=== PATIENT | female | born 1990 | race Caucasian/White ===

== ENCOUNTER 2018-11-04 16:44 | Emergency (ER) | payer OTHER ==
--- NOTE | 2018-11-04 17:01 | ERPHSYRPT ---
- History of Present Illness Time Seen by Provider: 11/04/18 16:58 Source: patient Exam Limitations: no limitations Physician History: 28-year-old white female with history of bee sting allergy arrives with complaint of itching all over she states she was stung by a bee approximately 20 minutes ago she denies any shortness of breath no nausea no vomiting. Past medical history includes bee sting allergy, bipolar disorder, pituitary cyst Past surgical history includes ORIF right leg and facial surgeries Last menstrual period one week ago denies Timing/Duration: today (220 minutes ago) Severity: moderate Modifying Factors: Improves With: other (stung by a bee) Associated Symptoms: rash (rash on anterior chest itching all over), No nausea, No vomiting, No abdominal pain, No shortness of breath, No heartburn, No diaphoresis, No cough, No chills, No chest pain, No fever, No headaches, No loss of appetite, No malaise, No syncope, No seizure, No weakness Allergies/Adverse Reactions: bee venom protein (honey bee) Allergy (Severe, Verified 11/04/18 17:02) Home Medications: Diclofenac Potassium [Cambia] 1 ea PO DAILY 11/04/18 [History] Propranolol HCl [Propranolol HCl ER] 80 mg PO HS 11/04/18 [History] lamoTRIgine [Lamictal] 150 mg PO HS 11/04/18 [History] - Review of Systems Constitutional: No Fever, No Chills Eyes: No Symptoms Ears, Nose, & Throat: No Symptoms Respiratory: No Cough, No Dyspnea Cardiac: No Chest Pain, No Edema, No Syncope Abdominal/Gastrointestinal: No Abdominal Pain, No Nausea, No Vomiting, No Diarrhea Genitourinary Symptoms: No Dysuria Musculoskeletal: No Back Pain, No Neck Pain Skin: Rash (rrash on her anterior chest), Other (itching all over) Neurological: No Symptoms Psychological: No Symptoms Endocrine: No Symptoms All Other Systems: Reviewed and Negative - Nursing Vital Signs Nursing Vital Signs: Initial Vital Signs Temperature 98 F 11/04/18 16:50 Pulse Rate 77 11/04/18 16:50 Respiratory Rate 16 11/04/18 16:50 Blood Pressure 139/85 11/04/18 16:50 O2 Sat by Pulse Oximetry 98 11/04/18 16:50 Pain Scale Pain Intensity 0 - Physical Exam General Appearance: mild distress, alert Eye Exam: PERRL/EOMI, eyes nml inspection Ears, Nose, Throat Exam: normal ENT inspection, TMs normal, pharynx normal, moist mucous membranes Neck Exam: normal inspection, non-tender, supple, full range of motion Respiratory Exam: normal breath sounds, lungs clear, No respiratory distress Cardiovascular Exam: regular rate/rhythm, normal heart sounds, normal peripheral pulses, capillary refill <2 sec Gastrointestinal/Abdomen Exam: soft, normal bowel sounds, No tenderness, No mass Back Exam: normal inspection, normal range of motion, No CVA tenderness, No vertebral tenderness Extremity Exam: normal inspection, normal range of motion, pelvis stable Neurologic Exam: alert, oriented x 3, cooperative, normal mood/affect, nml cerebellar function, nml station & gait, sensation nml, No motor deficits Skin Exam: other (erythematous rash anterior chest, arms and legs erythematous from scratching) Lymphatic Exam: No adenopathy SpO2 Interpretation: normal Ordered Tests: Active Orders 24 hr Category Date Time Status Critical Care Physician Assistant STAT Care 11/04/18 16:58 Active IV Insertion STAT Care 11/04/18 16:57 Active Medication Summary Discontinued Medications Generic Name Dose Route Start Last Admin Trade Name Freq PRN Reason Stop Dose Admin Diphenhydramine HCl 25 mg 11/04/18 16:57 11/04/18 17:20 Benadryl 50 Mg/Ml IV 11/04/18 16:58 25 mg STAT ONE Administration Diphenhydramine HCl Confirm 11/04/18 17:15 Benadryl 50 Mg/Ml Administered 11/04/18 17:16 Dose 50 mg .ROUTE .STK-MED ONE Epinephrine HCl 0.3 mg 11/04/18 16:57 11/04/18 17:20 Epinephrine 1mg/Ml Amp IM 11/04/18 16:58 0.3 mg STAT ONE Administration Epinephrine HCl Confirm 11/04/18 17:16 Epinephrine 1mg/Ml Amp Administered 11/04/18 17:17 Dose 1 mg .ROUTE .STK-MED ONE Methylprednisolone Sodium Succinate 125 mg 11/04/18 16:57 11/04/18 17:20 Solu-Medrol 125 Mg IV 11/04/18 16:58 125 mg STAT ONE Administration Methylprednisolone Sodium Succinate Confirm 06/25/19 17:16 Solu-Medrol 125 Mg Administered 11/04/18 17:17 Dose 125 mg .ROUTE .STK-MED ONE - Progress Progress: improved Progress Note: 11/04/18 17:58 Patient feeling much better. No longer itching. Rash is resolved. Will discharge - Departure Departure Disposition: Home Clinical Impression: Allergic reaction Qualifiers: Encounter type: initial encounter Qualified Code(s): T78.40XA - Allergy, unspecified, initial encounter Condition: Fair Critical Care Time: No Referrals: RADHA ELDRIDGE [Primary Care Provider] - Additional Instructions: Return home. Benadryl 50 mg orally every 6 hours x2-3 days. Plenty of fluids. Tapering prednisone as directed. Use EpiPen as directed. Followup with your family . Return for acute distress or for severe symptoms.
[2018-11-04] MEDS ORDERED: BENADRYL 50 MG/ML ONE (17:15)
[2018-11-04] MEDS ORDERED: EPINEPHRINE 1MG/ML AMP ONE (17:16)
[2018-11-04] MEDS ORDERED: solu-MEDROL 125 MG ONE (17:16)
[2018-11-04] MEDS: solu-MEDROL 125 MG IV ONE (17:20)
[2018-11-04] MEDS: EPINEPHRINE 1MG/ML AMP IM ONE (17:20)
[2018-11-04] MEDS: BENADRYL 50 MG/ML IV ONE (17:20)
[2018-11-04 17:29] VITALS: O2SAT 99
[2018-11-04 18:20] VITALS: BP 108/70; PULSE 67
== END 2018-11-04 18:22 | disposition home or self-care (01) ==
LOC: ED 16:44
DX: L29.9 Pruritus, unspecified (principal); T78.40XA Allergy, unspecified, initial encounter; T63.441A Toxic effect of venom of bees, accidental (unintentional), initial encounter
CPT/HCPCS: 36000; 93041; 96372; 96374; 96375; 99284; J0171; J1200; J2930

== ENCOUNTER 2019-11-05 18:59 | Emergency (ER) | payer OTHER ==
--- NOTE | 2019-11-05 19:05 | ERPHSYRPT ---
- History of Present Illness Time Seen by Provider: 11/05/19 19:05 Source: patient, family Exam Limitations: no limitations Physician History: This is a 29-year-old female who is allergic to bees and carries a EpiPen with her (it is outdated). Just prior to arrival, approximately 30 minutes, patient was stung by a wasp on her left ankle. Patient feels as though her face is flushed and some mild tightness in her neck when she swallows. She also feels as though she is itchy. She is she is breathing well with no wheezing. Patient did not use her EpiPen because it is outdated and she was only a short distance away. [place]. Patient has no allergies to any medication. She did not take any medications prior to arrival Timing/Duration: today Severity: mild Associated Symptoms: denies symptoms, No shortness of breath, No chest pain, No fever, No syncope Allergies/Adverse Reactions: bee venom protein (honey bee) Allergy (Severe, Verified 11/05/19 19:26) Home Medications: Diclofenac Potassium [Cambia] 1 ea PO DAILY 11/04/18 [History] Hx Tetanus, Diphtheria Vaccination/Date Given: Yes Hx Influenza Vaccination/Date Given: Yes Hx Pneumococcal Vaccination/Date Given: No Travel Risk - International Travel Have you traveled outside of the country in past 3 weeks: No - Coronavirus Screening Are you exhibiting any of the following symptoms?: No Close contact with a COVID-19 positive Pt in past 14-21 Days: No - Review of Systems Constitutional: No Symptoms Eyes: No Symptoms Ears, Nose, & Throat: No Symptoms Respiratory: No Symptoms Cardiac: No Symptoms Abdominal/Gastrointestinal: No Symptoms Genitourinary Symptoms: No Symptoms Musculoskeletal: No Symptoms Skin: Other (Redness left ankle.) Neurological: No Symptoms Psychological: No Symptoms Endocrine: No Symptoms Hematologic/Lymphatic: No Symptoms Immunological/Allergic: No Symptoms All Other Systems: Reviewed and Negative - Past Medical History Pertinent Past Medical History: Yes Neurological History: No Pertinent History ENT History: No Pertinent History Cardiac History: No Pertinent History Respiratory History: No Pertinent History Endocrine Medical History: No Pertinent History Musculoskeletal History: No Pertinent History GI Medical History: No Pertinent History History: No Pertinent History Psycho-Social History: Attention Deficit Disorder, Bipolar Female Reproductive Disorders: No Pertinent History Other Medical History: scoliosis, pituatary cyst - Past Surgical History Past Surgical History: Yes Neuro Surgical History: No Pertinent History Cardiac: No Pertinent History Respiratory: No Pertinent History Gastrointestinal: No Pertinent History Genitourinary: No Pertinent History Musculoskeletal: No Pertinent History Female Surgical History: Section Other Surgical History: facial surgery, peri in leg - Social History Smoking Status: Current every day smoker How long have you smoked: 8 Exposure to second hand smoke: No Drug Use: none Patient Lives Alone: No - Nursing Vital Signs Nursing Vital Signs: Initial Vital Signs Temperature 97.4 F 11/05/19 19:07 Pulse Rate 110 H 11/05/19 19:07 Respiratory Rate 24 11/05/19 19:07 Blood Pressure 148/95 11/05/19 19:07 O2 Sat by Pulse Oximetry 99 11/05/19 19:07 Pain Scale Pain Intensity 0 - Physical Exam General Appearance: mild distress, alert, anxiety Eye Exam: PERRL/EOMI, eyes nml inspection Ears, Nose, Throat Exam: normal ENT inspection, moist mucous membranes Neck Exam: normal inspection, non-tender, supple, full range of motion Respiratory Exam: normal breath sounds, lungs clear, airway intact, No chest tenderness, No respiratory distress Cardiovascular Exam: regular rate/rhythm, normal heart sounds, normal peripheral pulses Gastrointestinal/Abdomen Exam: No tenderness Pelvic Exam: not done Rectal Exam: not done Back Exam: normal inspection, normal range of motion, No CVA tenderness, No vertebral tenderness Extremity Exam: normal range of motion, pelvis stable, other (See below I tried to cancel it because would let me) Skin Exam: other (Mild redness and raised skin left ankle at the insect bite site.), No rash Lymphatic Exam: No adenopathy SpO2 Interpretation: normal O2 Delivery: Room Air ("Brought in the word long) - Course Nursing assessment & vital signs reviewed: Yes Ordered Tests: Active Orders 24 hr Category Date Time Status IV Insertion STAT Care 11/05/19 19:17 Active Medication Summary Discontinued Medications Generic Name Dose Route Start Last Admin Trade Name Freq PRN Reason Stop Dose Admin Diphenhydramine HCl 50 mg 11/05/19 19:17 11/05/19 19:25 Benadryl 50 Mg/Ml IV 11/05/19 19:18 50 mg STAT ONE Administration Diphenhydramine HCl Confirm 11/05/19 19:17 Benadryl 50 Mg/Ml Administered 11/05/19 19:18 Dose 50 mg .ROUTE .STK-MED ONE Famotidine 40 mg 11/05/19 19:17 11/05/19 19:25 Pepcid 20 Mg Vial IV 11/05/19 19:18 40 mg STAT ONE Administration Famotidine Confirm 11/05/19 19:17 Pepcid 20 Mg Vial Administered 11/05/19 19:18 Dose 40 mg IV .STK-MED ONE Methylprednisolone Sodium Succinate Confirm 11/05/19 19:17 Solu-Medrol 125 Mg Administered 11/05/19 19:18 Dose 125 mg .ROUTE .STK-MED ONE Methylprednisolone Sodium Succinate 125 mg 11/05/19 19:25 11/05/19 19:27 Solu-Medrol 125 Mg IV 11/05/19 19:26 125 mg STAT ONE Administration Promethazine HCl 12.5 mg 11/05/19 19:17 11/05/19 19:25 Phenergan 25 Mg Inj IV 11/05/19 19:18 Not Given STAT ONE - Progress Progress: improved Counseled pt/family regarding: diagnosis, need for follow-up, rad results - Departure Departure Disposition: Home Clinical Impression: Allergic reaction, Wasp sting Condition: Stable Critical Care Time: No Referrals: RADHA ELDRIDGE [Primary Care Provider] - Additional Instructions: Keep site of insect bite clean with soap and water. Use [id number] Benadryl 25 to 50 mg orally every 8 hours for the next 4 days. Fill your prescriptions and take them as prescribed. Return to the emergency department if symptoms worsen. Prescriptions: Prednisone 10 mg [Deltasone 10 mg] 10 mg PO TID #12 tablet EPINEPHrine [Epipen 0.3 MG] 0.3 mg IM UD PRN #1 unit PRN Reason: Allergies Famotidine 20 mg [Pepcid 20 MG] 20 mg PO DAILY #10 tablet
[2019-11-05] MEDS ORDERED: Phenergan 25 MG INJ IV ONE (19:17)
[2019-11-05] MEDS ORDERED: solu-MEDROL 125 MG ONE (19:17)
[2019-11-05] MEDS ORDERED: Pepcid 20 MG VIAL IV ONE ×2 (19:17)
[2019-11-05] MEDS ORDERED: BENADRYL 50 MG/ML IV ONE (19:17)
[2019-11-05] MEDS ORDERED: BENADRYL 50 MG/ML ONE (19:17)
[2019-11-05] MEDS ORDERED: solu-MEDROL 125 MG IV ONE (19:25)
[2019-11-05 19:27] VITALS: O2SAT 99
[2019-11-05 19:53] VITALS: BP 133/94; PULSE 92
== END 2019-11-05 19:56 | disposition home or self-care (01) ==
LOC: ED 18:59
DX: T63.461A Toxic effect of venom of wasps, accidental (unintentional), initial encounter (principal)
CPT/HCPCS: 36000; 96374; 96375; 99284; J1200; J2930